=== PATIENT | male | born 1965 | race African-American/Black ===

== ENCOUNTER 2018-08-04 15:22 | Emergency (ER) | payer OTHER ==
[~2018-08-04] VITALS: Ht 193 cm; Wt 120.0 kg
[~2018-08-04 15:22] MED LIST: AMANTADINE100 MG OR; AMLODIPINE10 MG PO; AMOXICILLIN500 M1 OR; AMOXICILLIN500 MG OR; AMOXICILLIN875 MG OR; AMOXIL500 MG OR; ASA OR; AUGMENTIN875TAB OR; BACTRIM DS1 TAB OR; BENADRYL 50MG C50 MG OR; BUTALBITAL/ACETAMIN1 PO; CATAPRES-T0.2 MG/24 TD; CIPROFLOXACN500 MG PO; CLONIDINE0.1 MG OR; CLONIDINE0.1 MG PO; CYCLOBENZAPR10 MG PO; FLEXERIL10 MG PO; FLEXERIL5 MG OR; GABAPENTIN300 MG PO; GLIPIZIDE10 M2 PO; HUMULIN 70/30 SC; INDERAL LA160 MG OR; LORTAB 10 OR; LORTAB 5 OR; LORTAB5 OR; LOTENSIN HCT1 TA2 PO; LOTENSIN20 MG OR; LOTENSIN20 MG PO; MEDDOSEPAK OR; MEDDOSEPAK PO; MELOXICAM7.5 MG PO; METFORMIN500 MG PO; NAPROSYN375 MG PO; NAPROSYN500 MG OR; NEURONTIN400 MG PO; NITROSTAT0.4 MG SL; NORVASC10 MG OR; NOVOLIN 70/30 SC; PENICILLN VK500 M1 OR; PENICILLN VK500 MG OR; PERCOCET 5/325M1 TAB OR; PHENERGAN12.5 MG/TA PO; SOMA350 MG OR; SOMA350 MG PO; TRAMADOL HCL50 MG OR; ULTRAM50 M1 PO; ULTRAM50 MG OR; ZOFRAN ODT4 MG OR; ZOFRAN ODT8 MG SL
[2018-08-04] MEDS ORDERED: AMOXICILLIN500 MG PO (16:15)
[2018-08-04] MEDS ORDERED: LORTAB 1010 MG PO (16:15)
[2018-08-04 16:22] VITALS: BP 132/90
== END 2018-08-04 16:22 | disposition home or self-care (01) | DRG 159 ==
LOC: ED 15:22
DX: K04.7 Periapical abscess without sinus (principal); I10 Essential (primary) hypertension; E11.9 Type 2 diabetes mellitus without complications

== ENCOUNTER 2021-12-22 01:08 | Emergency (ER) | payer OTHER ==
[~2021-12-22] VITALS: Ht 193 cm; Wt 103.2 kg
[~2021-12-22 01:08] MED LIST changes: +AMOXICILLIN500 MG PO; +LORTAB 1010 MG PO
[2021-12-22 01:52] LABS: HEMOGLOBIN 13.8 g/dl (14.0-18.0); IMMATURE GRANULOCYTES 0.2 % (0.0-5.0); MEAN CELL VOLUME 94.8 fL CALC (80.0-100.0); MEAN CORPUSCULAR HGB CONC 32.7 g/dL CAL (32.0-36.0); NEUT# 0.99 thou/uL (1.82-7.42); RED BLOOD COUNT 4.45 mill/uL (4.70-6.10); RED CELL DISTRI WIDTH 12.9 % (11.5-15.5)
[2021-12-22 01:53] LABS: HEMATOCRIT 42.2 % (39.0-50.0)
[2021-12-22] MEDS ORDERED: PAXLOVID PO (02:24)
[2021-12-22] MEDS ORDERED: DIABETIC MED (02:29)
[2021-12-22] MEDS ORDERED: INSULIN SC (02:30)
[2021-12-22 02:46] VITALS: BP 105/82
== END 2021-12-22 02:45 | disposition home or self-care (01) | DRG 179 ==
LOC: ED 01:08
PROVIDERS: Family Medicine
DX: U07.1 COVID-19 (principal); R50.9 Fever, unspecified; R05.9 Cough, unspecified; M79.10 Myalgia, unspecified site; I10 Essential (primary) hypertension; E11.9 Type 2 diabetes mellitus without complications

== ENCOUNTER 2022-04-22 00:30 | Emergency (ER) | payer OTHER ==
[2022-04-22] VITALS (10 sets, daily range): BP systolic 91–124; BP diastolic 64–76
[~2022-04-22] VITALS: Ht 193 cm; Wt 101.0 kg
[~2022-04-22 00:30] MED LIST changes: +DIABETIC MED; +INSULIN SC; +PAXLOVID PO
[2022-04-22 01:17] LABS: HEMATOCRIT 46.1 % (39.0-50.0); IMMATURE GRANULOCYTES 0.2 % (0.0-5.0); MEAN CELL VOLUME 92.9 fL CALC (80.0-100.0); MEAN CORPUSCULAR HGB 31.9 pG CALC (26.0-32.0); MEAN CORPUSCULAR HGB CONC 34.3 g/dL CAL (32.0-36.0); NEUT# 4.35 thou/uL (1.82-7.42); RED BLOOD COUNT 4.96 mill/uL (4.70-6.10); RED CELL DISTRI WIDTH 12.4 % (11.5-15.5)
[2022-04-22 01:18] LABS: HEMOGLOBIN 15.8 g/dl (14.0-18.0)
[2022-04-22 01:36] LABS: ALKALINE PHOSPHATASE 123 u/l (38-126); ANION GAP 17 (6-22 (CALC)); CARBON DIOXIDE 25 mmol/l (22-30); CHLORIDE 99 mmol/l (95-108); CREATININE 2.1 mg/dL (0.7-1.3); GFR FOR AFR.AMER. 40 ML/MIN (>=60 (CALC)); GFR OTHER RACES 33 ML/MIN (>=60 (CALC)); POTASSIUM 3.4 mmol/l (3.5-5.1); SODIUM 137 mmol/l (137-146)
[2022-04-22 01:38] LABS: BILIRUBIN, TOTAL 0.3 mg/dL (0.0-1.4); BUN 36 mg/dL (9-20); BUN/CREATININE RATIO 17 (12-20 (CALC)); SGOT/AST 33 u/l (17-59); TOTAL PROTEIN 7.6 g/dL (6.3-8.2)
== END 2022-04-22 06:02 | disposition home or self-care (01) | DRG 639 ==
LOC: ED 00:30
PROVIDERS: Emergency Medicine
DX: E11.65 Type 2 diabetes mellitus with hyperglycemia (principal); Z79.84 Long term (current) use of oral hypoglycemic drugs; Z20.822 Contact with and (suspected) exposure to COVID-19; I10 Essential (primary) hypertension; R06.89 Other abnormalities of breathing

== ENCOUNTER 2022-05-05 00:31 | Emergency (ER) | payer OTHER ==
[~2022-05-05] VITALS: Ht 193 cm; Wt 126.4 kg
[~2022-05-05 00:31] MED LIST changes: -INSULIN SC
[2022-05-05 01:54] LABS: BASO% 0.5 % (0-3); EOS% 6.3 % (0-8); HEMATOCRIT 40.5 % (39.0-50.0); IMMATURE GRANULOCYTES 0.5 % (0.0-5.0); LYMPH% 38.1 % (15-41); MEAN CELL VOLUME 96.4 fL CALC (80.0-100.0); MEAN CORPUSCULAR HGB 32.1 pG CALC (26.0-32.0); MEAN CORPUSCULAR HGB CONC 33.3 g/dL CAL (32.0-36.0); MONO% 8.6 % (2-13); NEUT# 2.9 thou/uL (1.82-7.42); RED BLOOD COUNT 4.2 mill/uL (4.70-6.10); RED CELL DISTRI WIDTH 13.1 % (11.5-15.5)
[2022-05-05 01:56] LABS: HEMOGLOBIN 13.5 g/dl (14.0-18.0)
[2022-05-05 02:26] LABS: ALBUMIN 3.9 g/dL (3.2-5.0); ALKALINE PHOSPHATASE 108 u/l (38-126); BILIRUBIN, TOTAL 0.2 mg/dL (0.0-1.4); BUN 19 mg/dL (9-20); BUN/CREATININE RATIO 13 (12-20 (CALC)); CHLORIDE 103 mmol/l (95-108); CREATININE 1.4 mg/dL (0.7-1.3); GFR FOR AFR.AMER. > 60 ML/MIN (>=60 (CALC)); GFR OTHER RACES 52 ML/MIN (>=60 (CALC)); SGOT/AST 30 u/l (17-59); SODIUM 142 mmol/l (137-146); TOTAL PROTEIN 7.2 g/dL (6.3-8.2)
[2022-05-05 02:32] LABS: ANION GAP 12 (6-22 (CALC)); CARBON DIOXIDE 31 mmol/l (22-30); POTASSIUM 4.4 mmol/l (3.5-5.1)
[2022-05-05] MEDS ORDERED: NORVASC5 M1 PO (03:30)
[2022-05-05] MEDS ORDERED: LISINOP/HCTZ1 TAB PO (03:31)
[2022-05-05] MEDS ORDERED: FLEXERIL5 M1 PO (03:36)
[2022-05-05] MEDS ORDERED: PREDNISONE50 MG PO (04:34)
[2022-05-05] MEDS ORDERED: VENTOLIN HFA IN (04:34)
[2022-05-05] MEDS ORDERED: ZITHROMAX250 MG PO (04:34)
[2022-05-05 05:10] VITALS: BP 148/84
== END 2022-05-05 05:25 | disposition home or self-care (01) | DRG 203 ==
LOC: ED 00:31
PROVIDERS: Emergency Medicine
DX: J20.9 Acute bronchitis, unspecified (principal); R05.9 Cough, unspecified; E11.9 Type 2 diabetes mellitus without complications; Z79.84 Long term (current) use of oral hypoglycemic drugs; I10 Essential (primary) hypertension

== ENCOUNTER 2022-06-16 23:47 | Emergency (ER) | payer OTHER ==
[~2022-06-16] VITALS: Ht 182.9 cm; Wt 104.0 kg
[~2022-06-16 23:47] MED LIST changes: +FLEXERIL5 M1 PO; +LISINOP/HCTZ1 TAB PO; +NORVASC5 M1 PO; +PREDNISONE50 MG PO; +VENTOLIN HFA IN; +ZITHROMAX250 MG PO
[2022-06-16 23:53] VITALS: BP 125/85
[2022-06-17] VITALS: BP 120/76
[2022-06-17 00:30] VITALS: BP 124/77
[2022-06-17 01:00] VITALS: BP 115/72
[2022-06-17] MEDS ORDERED: ROBITUSSIN AC10 ML PO (01:07)
[2022-06-17] MEDS ORDERED: ZITHROMAX250 MG PO (01:07)
[2022-06-17 01:30] VITALS: BP 114/70
[2022-06-17 01:42] VITALS: BP 114/70
== END 2022-06-17 01:42 | disposition home or self-care (01) | DRG 153 ==
LOC: ED 23:47
DX: J06.9 Acute upper respiratory infection, unspecified (principal); R05.9 Cough, unspecified; I10 Essential (primary) hypertension; E11.9 Type 2 diabetes mellitus without complications; Z79.84 Long term (current) use of oral hypoglycemic drugs; Z20.822 Contact with and (suspected) exposure to COVID-19

== ENCOUNTER 2022-08-08 23:25 | Emergency (ER) | payer OTHER ==
[~2022-08-08] VITALS: Ht 182.9 cm; Wt 100.0 kg
[~2022-08-08 23:25] MED LIST changes: +ROBITUSSIN AC10 ML PO
[2022-08-08 23:31] VITALS: BP 166/105
[2022-08-08 23:32] VITALS: BP 174/102
[2022-08-08 23:45] VITALS: BP 156/92
[2022-08-08] MEDS ORDERED: GABAPENTIN600 MG PO (23:46)
[2022-08-08] MEDS ORDERED: TYLENOL # 31 TA1 PO (23:47)
[2022-08-09] MEDS ORDERED: TYLENOL # 31 TA1 PO (18:26)
== END 2022-08-08 23:58 | disposition home or self-care (01) | DRG 74 ==
LOC: ED 23:25
DX: E11.43 Type 2 diabetes mellitus with diabetic autonomic (poly)neuropathy (principal); I10 Essential (primary) hypertension; Z79.4 Long term (current) use of insulin

== ENCOUNTER 2022-11-17 23:36 | Emergency (ER) | payer OTHER ==
[~2022-11-17] VITALS: Ht 182.9 cm; Wt 100.4 kg
[~2022-11-17 23:36] MED LIST changes: +GABAPENTIN600 MG PO; +TYLENOL # 31 TA1 PO
[2022-11-18 00:19] VITALS: BP 130/84
[2022-11-18 00:59] LABS: BASO% 0.2 % (0-3); EOS% 7.5 % (0-8); HEMATOCRIT 39.4 % (39.0-50.0); HEMOGLOBIN 12.5 g/dl (14.0-18.0); IMMATURE GRANULOCYTES 0.4 % (0.0-5.0); LYMPH% 49.4 % (15-41); MEAN CELL VOLUME 95.9 fL CALC (80.0-100.0); MEAN CORPUSCULAR HGB 30.4 pG CALC (26.0-32.0); MEAN CORPUSCULAR HGB CONC 31.7 g/dL CAL (32.0-36.0); MONO% 4.6 % (2-13); NEUT# 3.06 thou/uL (1.82-7.42); NEUT% 37.9 % (42-76); RED BLOOD COUNT 4.11 mill/uL (4.70-6.10); RED CELL DISTRI WIDTH 12.9 % (11.5-15.5)
[2022-11-18 01:11] LABS: ALBUMIN 3.7 g/dL (3.2-5.0); CREATININE 1.5 mg/dL (0.7-1.3); POTASSIUM 4.5 mmol/l (3.5-5.1); TOTAL PROTEIN 7.1 g/dL (6.3-8.2)
[2022-11-18 01:12] LABS: BILIRUBIN, TOTAL 0.3 mg/dL (0.2-1.3)
[2022-11-18 01:45] VITALS: BP 153/91
[2022-11-18 02:01] VITALS: BP 157/81
[2022-11-18] MEDS ORDERED: CYCLOBENZAPRINE10 MG PO (02:06)
[2022-11-18] MEDS ORDERED: NAPROXEN500 MG PO (02:06)
[2022-11-18 02:16] VITALS: BP 150/82
== END 2022-11-18 13:48 | disposition home or self-care (01) | DRG 552 ==
LOC: ED 23:36
PROVIDERS: Emergency Medicine
DX: S33.5XXA Sprain of ligaments of lumbar spine, initial encounter (principal); I10 Essential (primary) hypertension; E11.40 Type 2 diabetes mellitus with diabetic neuropathy, unspecified; X50.0XXA Overexertion from strenuous movement or load, initial encounter; Z79.4 Long term (current) use of insulin

== ENCOUNTER 2024-08-07 23:02 | Emergency (ER) | payer OTHER ==
[~2024-08-07] VITALS: Ht 182.9 cm; Wt 81.0 kg
[~2024-08-07 23:02] MED LIST changes: +CYCLOBENZAPRINE10 MG PO; +HYDROCO/APAP1 TA9 PO; +NAPROXEN500 MG PO; +ZPAK PO
[2024-08-07 23:10] VITALS: BP 118/89
[2024-08-07] MEDS ORDERED: KETOROLAC TROMETHAMINE 30 MG/ML SDV IM ONE (23:15)
[2024-08-07] MEDS ORDERED: BENZONATATE 200 MG/CAP PO ONE (23:15)
[2024-08-08] VITALS: BP 135/80
[2024-08-08] MEDS ORDERED: PROVENTIL0.083 % IN (00:21)
[2024-08-08] MEDS ORDERED: MOTRIN800 MG PO (00:21)
[2024-08-08] MEDS ORDERED: BENZONATATE200 MG PO (00:22)
[2024-08-08 00:30] VITALS: BP 141/86
[2024-08-08 00:37] VITALS: BP 141/86
== END 2024-08-08 00:37 | disposition home or self-care (01) | DRG 203 ==
LOC: ED 23:02
DX: J40 Bronchitis, not specified as acute or chronic (principal); I10 Essential (primary) hypertension; E11.40 Type 2 diabetes mellitus with diabetic neuropathy, unspecified; Z79.4 Long term (current) use of insulin; Z20.822 Contact with and (suspected) exposure to COVID-19